=== PATIENT | female | born 2005 | race Two or more races ===

== ENCOUNTER 2025-02-06 09:06 | Emergency (ER) | payer MEDICAID, SELFPAY ==
[2025-02-06 09:15] VITALS: BP 100/66; PULSE 115; RESP 20; TEMP 39; O2SAT 95; BMI 27.1
--- NOTE | 2025-02-06 09:26 | PC.NURSE ---
CANCEL SEPSIS ALERT PER DR. DURANT
--- NOTE | 2025-02-06 09:36 | PD.EDFMALE ---
ED Female Urogenital RME/HPI General Chief complaint: General Adult/Misc Complain Stated complaint: C/O BLADDER INFECTION X 1 WK Time Seen by Provider: 02/06/25 09:29 Arrival date/time: 02/06/25 09:06 Limitations: no limitations RME / HPI RME / HPI Narrative: 19 year old female with a history of two sections and no known chronic medical conditions presents to the ED with dysuria for the past week, gradually worsening. She reports using OTC UTI test strips at home, which were positive, and self treated with Azo. Stated the symptoms have not improved. Last night she developed fevers and took Tylenol. She denies any chest pain, cough, shortness of breath, abdominal or back pain, hematuria, and has not consulted her PCP or initiated antibiotics. Related Data Home Medications ?Medication ?Instructions ?Recorded ?Confirmed vit,calcium 128-iron fum 1 tab PO QDAY 03/09/23 03/09/23 28 mg iron-folic acid 800 mcg tablet Previous Rx's ?Medication ?Instructions ?Recorded ciprofloxacin HCl 500 mg tablet 500 mg PO BID UTI #20 tabs 02/06/25 Allergies Allergy/AdvReac Type Severity Reaction Status Date / Time Penicillins Allergy Severe Anaphylaxis Verified 02/06/25 09:12 Review of Systems Review of Systems Systems Reviewed: All systems reviewed, normal except as documented Past Medical History Past Medical History NEUROLOGIC: Negative Neurological Disorders CARDIAC: Negative Cardiac Disorders GASTROINTESTINAL: Negative Gastrointestinal Disorders GENITOURINARY: Negative Genitourinary Disorders or Renal Disease MUSCULOSKELETAL: Negative Musculoskeletal Disorders ENDOCRINE: Negative Endocrine Disorders OTHER HISTORY: Positive Chicken Pox Family History FAMILY HISTORY: Negative Family Psychiatric Problems, Family Respiratory Disorders, Family Cardiac Disorders, Family Gastrointestinal Problems, Family Cancer, Family Surgery or Family Anesthesia Reaction Surgical History SURGICAL: Positive Section; Negative Endocrine Surgery, Ear Surgery, Abdominal Surgery, Nephrectomy, Joint Replacement or Neurologic Surgery Social History SMOKING STATUS: Never smoker SECOND HAND EXPOSURE: No ED Exam General Limitations: Present no limitations General appearance: Present alert and in no apparent distress Head Head exam: Present atraumatic, normocephalic and normal inspection Eye Eye exam: Present normal appearance, PERRL and EOMI ENT ENT exam: Present normal exam, normal oropharynx and mucous membranes moist Neck Neck exam: Present normal inspection, full ROM and trachea midline Chest Chest inspection: Present normal inspection and symmetric chest wall rise Respiratory Respiratory exam: Present normal lung sounds bilaterally Cardiovascular Cardiovascular exam: Present regular rate, normal rhythm and normal heart sounds Abdominal Exam Abdominal exam: Present soft and normal bowel sounds Extremities Exam Extremities exam: Present normal inspection and full ROM Back Exam Back exam: Present normal inspection and full ROM Neurological Exam Neurological exam: Present alert, oriented X3 and CN II-XII intact Psychiatric Psychiatric exam: Present normal affect and normal mood Skin Skin exam: Present warm, dry, intact and normal color Course Quality Measures Current suspected stage: ruled out Possible source: genitourinary Blood cultures ordered: completed in ED Antibiotic ordered: Yes sepsis Orders Category Date Time Status Insert IV NOW Care 02/06/25 09:23 Active Insert IV NOW Care 02/06/25 09:29 Completed CBC Stat Lab 02/06/25 09:36 Completed Comprehensive Metabolic Panel Stat Lab 02/06/25 09:36 Completed HCG Qualitative,Urine Stat Lab 02/06/25 10:11 Completed UA, C/S IF [Urinalysis, C/S if Indicated] Stat Lab 02/06/25 10:11 Completed Acetaminophen Tab [Tylenol ES Tab] Med 02/06/25 09:23 Discontinued 1,000 mg PO X1 ONE Acetaminophen Tab [Tylenol Tab] Med 02/06/25 09:29 Discontinued 650 mg PO X1 ONE Sodium Chloride 0.9% 1000 ml [Ns] 1,000 ml Med 02/06/25 09:29 Active IV 100 mls/hr Sodium Chloride 0.9% 1000 ml [Ns] 1,000 ml Med 02/06/25 09:23 Discontinued IV 999 mls/hr [id number] [Rocephin] 2 gm Med 02/06/25 09:30 Discontinued SODIUM CHLORIDE 0.9% (Popper) [Ns 0.9% (P)] 50 ml IV X1 Vital Signs Vital signs: Vital Signs Temperature 102.2 F H 02/06/25 09:15 Pulse Rate 115 H 02/06/25 09:15 Respiratory Rate 20 02/06/25 09:15 Blood Pressure 100/66 02/06/25 09:15 Pulse Oximetry (%) 95 02/06/25 09:15 Oxygen Delivery Method Room Air 02/06/25 09:15 Pulse ox is 95% on room air which is adequate. Urogenital - Female MDM Narrative MDM Narrative:: Helen Carter am scribing for and in the presence of Dr. Rodrigez. The patient presented to the ED febrile 102.2?F and tachycardic in the 110s. She reports a positive result on OTC UTI test strips and has not started antibiotics. The likely cause of her tachycardia is the untreated urinary tract infection. Although she does not appear septic at this time, IV fluids and empiric IV antibiotics will be initiated. Patient remains clinically stable throughout the emergency department visit. We reviewed all the results, analysis, and treatment plans. Patient is amenable to discharge. Strict return precautions were outlined. Patient was discharged in stable condition. Patient data External records reviewed:: [facility] previous records (I reviewed H&P on 03/27/2024 ) Clinical information provided by:: patient Social determinants that could affect healthcare access:: none Patient has the following chronic illnesses:: No chronic medical hx reported How is presenting disease/condition affected by chronic disease/condition?: no chronic disease Evaluation data The following diagnostics were reviewed and interpreted by me:: lab results Lab and/or radiology exams considered but not ordered:: None Interpretation Summary: No leukocytosis, CMP within normal limits Medications / Prescriptions Medications or Prescriptions considered but not ordered:: None Medication administrations:: Medication Administration History Sodium Chloride (Ns) 1,000 mls @ 100 mls/hr IV .Q10H ONE Stop: 02/06/25 19:28 Last Admin: 02/06/25 10:32 Dose: 100 mls/hr Documented By: DUYEN Discontinued Medications Acetaminophen (Acetaminophen 500 Mg Tablet) 1,000 mg PO X1 ONE Stop: 02/06/25 09:24 Last Admin: 02/06/25 09:45 Dose: 1,000 mg Documented By: DUYEN Acetaminophen (Acetaminophen 325 Mg Tablet) 650 mg PO X1 ONE Stop: 02/06/25 09:30 Last Admin: 02/06/25 09:46 Dose: Not Given Documented By: DUYEN Non-Admin Reason: Cancelled by Provider Sodium Chloride (Ns) 1,000 mls @ 999 mls/hr IV .Q1H1M ONE Stop: 02/06/25 10:23 Last Infusion: 02/06/25 10:32 Dose: Infused Documented By: Admin: 02/06/25 09:41 Dose: 999 mls/hr Documented By: DUYEN Ceftriaxone Sodium 2 gm/ (Sodium Chloride) 50 mls @ 100 mls/hr IV X1 ONE Stop: 02/06/25 09:59 Last Infusion: 02/06/25 10:32 Dose: Infused Documented By: Admin: 02/06/25 09:52 Dose: 100 mls/hr Documented By: DUYEN See above Consultations Consultation(s) initiated? (list below): No Diagnosis Urogenital Female Differential Diagnosis: urinary tract infection, cystitis and other (pyelonephritis, sepsis ) Most likely diagnosis given after review of the tests above:: UTI Admission Indicated Admission indicated?: not indicated Admission Request Was there a request for admission?: No Disposition Plan Disposition Plan: Discharge Discharge Attestation Discharge Attestation: The patient and all family members were given an opportunity to ask questions and understood the discharge instructions. Discharge instructions specifically effects, indications for sooner follow up or return to the emergency department, and the expected course of current diagnosis. Patient condition: Stable Discharge Plan Plan Patient Disposition: HOME (Self Care) Prescriptions/Referrals Prescriptions/Med Rec: New ciprofloxacin HCl 500 mg tablet 500 mg PO BID MDD 2 Qty: 20 0RF No Action vit no.[id number] 28 mg iron- 800 mcg Tablet 1 tab PO QDAY Referrals: Rick Avila MD [Primary Care Provider] - In 1 week Problem List Clinical Impression: UTI (urinary tract infection) Patient/Caregiver Discharge Instructions Education Materials: Urinary Tract Infections in Women Additional Instructions: Follow-up with your primary care doctor in 3 to 5 days for recheck. You can return to the emergency department sooner if symptoms worsen or if you notice any new, concerning issues. Print Language: Arabic Stand Alone Forms: Christine Award Info., Patient Portal Info Letter
[2025-02-06] MEDS: SODIUM CHLORIDE 0.9% 1000 ML 1,000 ML 999 ML IV (09:41)
[2025-02-06 09:45] VITALS: TEMP 39
[2025-02-06] MEDS: ACETAMINOPHEN 500 MG TABLET 1000 MG PO (09:45)
[2025-02-06] MEDS: cefTRIAXone 2 GM in SODIUM CHLORIDE 0.9% (Popper) 50 ML IV (09:52)
[2025-02-06 10:13] LABS: Alanine Aminotransferase 15 U/L (10-49); Albumin, Serum 4.8 gm/dL (3.5-5.0); Albumin/Globulin Ratio 1.8 (1.2-2.2); Alkaline Phosphatase 100 U/L (46-116); Anion Gap 11 (7-16); Aspartate Amino Transferase 20 U/L (0-34); BUN/Creatinine Ratio 10 Ratio (12-20); Bilirubin,Total 0.7 mg/dL (0.3-1.2); Blood Urea Nitrogen 7 mg/dL (9-23); Calcium 8.8 mg/dL (8.3-10.6); Calcium (Corrected) 8.8 mg/dL (8.5-10.1); Carbon Dioxide 24.8 mMol/L (20.0-31.0); Chloride 103 mMol/L (98-107); Creatinine (Component) 0.7 mg/dL (0.6-1.3); Estimated Creatinine Clearance 138.3 mL/min (>60); Globulin 2.6 gm/dL (2.3-3.5); Glucose 98 mg/dL (74-106); Osmolality,Calculated 275 (275-295); Potassium 3.5 mMol/L (3.4-5.1); Sodium 139 mMol/L (136-145); Total Protein 7.4 gm/dL (5.7-8.2); eGFR > 60 See Note
[2025-02-06 10:20] LABS: Collection Type, Urine Clean Catch
[2025-02-06 10:24] LABS: Basophils % (Auto) 0 % (0-2.5); Eosinophils % (Auto) 0 % (0-10); Hematocrit 39.7 % (36.0-46.0); Hemoglobin 13.6 g/dL (12.0-16.0); Immature Granulocytes % (Auto) 0 % (0-0); Immature Granulocytes Auto 0.04 Thou/mm3 (0.00-0.00); Lymphocytes # (Auto) 0.8 Thou/mm3 (1.0-4.8); Lymphocytes % (Auto) 9 % (10-50); Mean Corpuscular HGB Conc 34.3 g/dl (31.0-37.0); Mean Corpuscular Volume 82 fL (80-100); Monocytes # (Auto) 0.6 Thou/mm3 (0.0-0.8); Monocytes % (Auto) 7 % (0-12); Neutrophils # (Auto) 7.8 Thou/mm3 (1.8-7.7); Neutrophils % (Auto) 84 % (37-80); Nucleated Red Blood Cell % 0 /100 WBC (0); Platelet Count 306 Thou/mm3 (140-440); RDW Standard Deviation 36.3 fL (36.4-46.3); Red Blood Count 4.86 Miln/mm3 (4.00-5.20); White Blood Count 9.3 Thou/mm3 (4.5-11.0)
[2025-02-06] MEDS: SODIUM CHLORIDE 0.9% 1000 ML 1,000 ML 100 ML IV (10:32)
[2025-02-06 10:53] VITALS: TEMP 37.7
[2025-02-06 10:54] VITALS: BP 113/61; PULSE 89; RESP 17; TEMP 37.7
[2025-02-06 11:01] LABS: Bacteria,Urine 2+; Bilirubin,Urine Negative (Negative); Blood,Urine 3+ (Negative); Clarity,Urine Turbid (Clear/Hazy); Color,Urine Yellow (Lt Yel-Yel); Culture Indicated,Urine Contaminated; Glucose, Urine Negative (Negative); Ketones,Urine Negative (Negative); Leukocyte Esterase,Urine Positive (Negative); Nitrite,Urine Positive (Negative); Protein,Urine 1+ (Neg - Trace); RBC,Urine 12 /hpf (0-3); Specific Gravity,Urine 1.013 (1.001-1.035); Squamous Epithelial Cell,Urine 17 /hpf (0-5); Urobilinogen,Urine Negative mg/dL (0.0-1.0); WBC,Urine 232 /hpf (0-5)
[2025-02-06 11:06] LABS: HCG Qualitative,Urine Negative
[2025-02-06 12:16] VITALS: BP 107/68; PULSE 87; RESP 16; TEMP 37.6; O2SAT 100
[2025-02-06 13:36] VITALS: BP 136/77; PULSE 101; RESP 16; TEMP 38.2; O2SAT 98
== END 2025-02-06 13:36 | disposition home or self-care (01) ==
PROVIDERS: Nurse Practitioner Primary Care; Emergency Provider Family Medicine; PCP Family Medicine
DX: N39.0 Urinary tract infection, site not specified (principal)
CPT/HCPCS: 36415; 80053; 81001; 81025; 83605; 84145; 85025; 87040; 96361; 96365; 99281; 99284; J0696; J7030; J7050; A9270